=== PATIENT | female | born 1970 | race Native Hawaiian/Other Pacific Islander ===

== ENCOUNTER 2017-11-18 00:35 | Emergency (ER) | payer OTHER ==
[~2017-11-18] VITALS: Ht 157.5 cm; Wt 87.1 kg
--- OUTSIDE RECORDS SUMMARY | 2017-11-18 00:44 | XMS REPORT ---
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 Info Not Available Non Drug Allergy Problems Problem Type Condition Code Onset Dates Condition Status Assessment Acute sinusitis J01.90 Active Assessment Urticaria L50.9 Active Medications Medication Code System Code Instructions Start Date End Date Status Dosage Triamcinolone Acetonide [facility] [address]-76 0.1 % Externally Twice a day to rash Oct 06, 2015 1 application to affected area PredniSONE [facility] [address]-94 20 MG Orally Once a day Oct 06, 2015 Oct 11, 2015 1 tablet with food or milk Amoxicillin [facility] [address]-78 500 MG Orally Twice a day Oct 06, 2015 Oct 16, 2015 2 capsules one time Procedures Procedure Coding System Code Date Office Visit, New Pt., Level 3 CPT-4 90273 Oct 06, 2015 Vital Signs Date/Time: Oct 06, 2015 Temperature 98.5 F Weight 217.15 lbs Height 62 in BMI 39.71 Index Blood Pressure Diastolic 64 mmHg Blood Pressure Systolic 106 mmHg Cardiac Monitoring Heart Rate 76 bpm Results No Known Results Summary Purpose eClinicalWorks Submission
[2017-11-18] MEDS ORDERED: RX-AMOXICILLIN 500 MG CAP #3 PPK PO STA (01:23)
[2017-11-18] MEDS ORDERED: HYDROcodone/APAP 7.5 MG/325 MG (LORTAB, LORCET PLUS) TABLET PO STA (01:23)
[2017-11-18] MEDS ORDERED: AMOXICILLIN 500 MG (POLYMOX) CAP PO STA (01:23)
[2017-11-18] MEDS ORDERED: RX-HYDROCODONE/APAP 5/325 MG #4 TAB PK PO PRN (01:30)
--- NOTE | 2017-11-18 01:32 | ED EENT ---
History of Present Illness General Chief Complaint: Dental Problems/Pain Stated Complaint: SWOLLEN JAW TOOTH PAIN Nursing Triage Note: PT TO ED 10 W/ FAMILY FOR C/O LT SIDE DENTAL PAIN ONSET YESTERDAY Source: patient Exam Limitations: no limitations History of Present Illness Time seen by provider: 01:17 Initial Comments Here with report of dental pain to the left posterior upper tooth. There is apparently a tooth that is cracked there. Does report some swelling of the face. Denies nausea or vomiting. No fever or chills. Pain is quite severe and not better with 2 Advil. Timing/Duration: abrupt, this morning Severity: moderate Location: dental Prearrival Treatment: over the counter meds Associated Symptoms: facial pain/swelling, No fever, No sinus infection, No sore throat, tooth pain, No voice change Allergies and Home Medications Allergies Coded Allergies: No Known Drug Allergies (Unverified , 11/18/17) Review of Systems Constitutional: see HPI, No chills, No fever Ears: No Symptoms Reported Nose: no symptoms reported Mouth: see HPI, pain, swelling Throat: no symptoms reported Respiratory: no symptoms reported Gastrointestinal: No abdominal pain, No nausea, No vomiting Skin: no symptoms reported Neurological: No Symptoms Reported Past Eqcjtgd-Ddsrdo-Kxgwzb Hx Patient Social History Alcohol Use: Denies Use Recreational Drug Use: No Smoking Status: Never a Smoker Recent Foreign Travel: No Contact w/Someone Who Travel: No Recent Infectious Disease Expo: No Physical Abuse: No Sexual Abuse: No Mistreated: No Fear: No Surgeries History of Surgeries: No Respiratory History of Respiratory Disorde: No Cardiovascular History of Cardiac Disorders: No Neurological History of Neurological Disord: No Genitourinary History of Genitourinary Disor: No Gastrointestinal History of Gastrointestinal Di: No Musculoskeletal History of Musculoskeletal Dis: No Endocrine History of Endocrine Disorders: No HEENT History of HEENT Disorders: No Cancer History of Cancer: No Psychosocial History of Psychiatric Problem: No Suicide Risk Score: 0 Integumentary History of Skin or Integumenta: No Blood Transfusions History of Blood Disorders: No Reviewed Nursing Assessment Reviewed/Agree w Nursing PMH: Yes Family Medical History Significant Family History: No Pertinent Family Hx Physical Exam Vital Signs Vital Sign - Last 12Hours 11/18/17 00:52 Temp 98.2 Pulse 92 Resp 20 B/P (MAP) 125/89 (101) Pulse Ox 99 General Appearance: WD/WN, no apparent distress Eyes: bilateral eye normal inspection, bilateral eye PERRL, bilateral eye EOMI Nose: normal inspection, No active bleeding Mouth/Throat: pharynx normal, dental tenderness, other (pain and dental carry with moderate decay and tooth is cracked to number 15.) Neck: full range of motion, supple Cardiovascular: regular rate, rhythm, no murmur Respiratory: lungs clear, normal breath sounds Neurologic/Psychiatric: alert, oriented x 3 Skin: normal color, warm/dry Progress/Results/Core Measures Results/Orders My Orders Orders - KRISTIN MERCER MD Hydrocodone/Apap 7.5/325 Tab (Lortab 7. (11/18/17 01:23) Rx-Hydrocodone/Apap 5-325 Mg (Rx-Vicodin (11/18/17 01:30) Amoxicillin Capsule (Polymox Capsule) (11/18/17 01:23) Rx-Amoxicillin Capsule (Rx-Polymox Capsu (11/18/17 01:23) Vital Signs/I&O Vital Sign - Last 12Hours 11/18/17 00:52 Temp 98.2 Pulse 92 Resp 20 B/P (MAP) 125/89 (101) Pulse Ox 99 Blood Pressure Mean: 101 Progress Note : Progress Note Seen and evaluated. Hydrocodone 7.5/325 one tab by mouth. Amoxicillin 500 mg by mouth. Copack of amoxicillin and hydrocodone given. Discharged home with return precautions. Patient verbalize understanding instructions and agreement with plan. Departure Impression Impression: Primary Impression: Dental caries Disposition: HOME, SELF-CARE Condition: Improved Departure-Patient Inst. Decision time for Depature: 01:31 Referrals: NO,LOCAL PHYSICIAN (PCP) Primary Care Physician Patient Instructions: Dental Pain (DC), Fractured Tooth (DC) Add. Discharge Instructions: All discharge instructions reviewed with patient and/or family. Voiced understanding. Take medications as directed. Follow-up with your dentist as soon as possible. You may take ibuprofen (Advil, Motrin) 800 mg every 8 hours as needed for pain. You may use dental wax over the tooth of concern. This may decrease the pain and prevent her from getting on the tooth. Rinse her mouth with salt water 3 times daily. Return for worsening, fever, vomiting, weakness, breathing problems or other concerns as needed. Scripts Hydrocodone Bit/Acetaminophen (Hydrocodone/Acetaminophen 5/325mg Tablet) 1 Tab Tab 1-2 EACH PO Q6H Y for PAIN-MODERATE, #12 TAB 0 Refills Prov: KRISTIN MERCER MD 11/18/17 Amoxicillin (Amoxicillin) 500 Mg Capsule 500 MG PO TID, #30 CAP 0 Refills Prov: KRISTIN MERCER MD 11/18/17 Images Mouth/Nose 1 - KRISTIN MERCER MD Nov 18, 2017 01:32
[2017-11-18] MEDS ORDERED: AMOX500C2 PO (01:33)
[2017-11-18] MEDS ORDERED: ACHD5005 PO (01:33)
[2017-11-18 01:38] VITALS: BP 0/0
== END 2017-11-18 01:38 | disposition home or self-care (01) ==
LOC: EDUNIT# 00:35 → ER 00:40
DX: K02.9 Dental caries, unspecified (principal)
CPT/HCPCS: 99283

== ENCOUNTER 2023-01-27 05:31 | Emergency (ER) | payer SELFPAY ==
[~2023-01-27] VITALS: Ht 157.5 cm; Wt 73.6 kg
[~2023-01-27 05:31] MED LIST: ACHD5005 PO; AMOX500C2 PO
[2023-01-27 05:37] VITALS: BP 143/93
[2023-01-27] MEDS ORDERED: KETO10TA PO (05:50)
--- NOTE | 2023-01-27 05:51 | ED EENT ---
History of Present Illness General Chief Complaint: Dental Problems/Pain Stated Complaint: DENTAL PAIN Source: patient, family () Exam Limitations: no limitations History of Present Illness Date Seen by Provider: Jan 27, 2023 Time Seen by Provider: 05:32 Initial Comments 52-year-old female presents for left upper dental pain. Symptoms started yesterday and have progressively been causing her not to be able to sleep. She has a cracked tooth in this area but states she has never had pain in the area before. No fevers or chills. No difficulty swallowing. All other systems reviewed and negative except documented per HPI. Voice recognition software was used to help create this chart Allergies and Home Medications Allergies Coded Allergies: No Known Drug Allergies (Unverified , 11/18/17) Patient Home Medication List Home Medication List Reviewed: Yes Amoxicillin (Amoxicillin) 500 Mg Capsule, 500 MG PO TID Prescribed by: KRISTIN MERCER on 11/18/17 0133 Hydrocodone Bit/Acetaminophen (Lortab 5 Mg Tablet) 1 Tab Tab, 1-2 EACH PO Q6H PRN for PAIN-MODERATE Prescribed by: KRISTIN MERCER on 11/18/17 0133 Review of Systems Review of Systems Constitutional: no symptoms reported Past Gvjbnkn-Gtuwhi-Zrurji Hx Patient Social History Tobacco Use?: No Use of E-Cig and/or Vaping dev: No Substance use?: No Alcohol Use?: No Past Medical History Surgeries: No Respiratory: No Cardiac: No Neurological: No Genitourinary: No Gastrointestinal: No Musculoskeletal: No Endocrine: No HEENT: No Cancer: No Psychosocial: No Integumentary: No Blood Disorders: No Family Medical History Reviewed Nursing Family Hx No Pertinent Family Hx Physical Exam Height, Weight, BMI Height: 5'2.00" Weight: 192lbs. oz. 87.386723rz; BMI Method:Stated General Appearance: WD/WN, no apparent distress Eyes: bilateral eye normal inspection, bilateral eye PERRL, bilateral eye EOMI Ears: bilateral ear auricle normal, bilateral ear canal normal, bilateral ear TM normal Nose: normal inspection Mouth/Throat: other (There is a severely decayed tooth in the left upper premolar area. No fluctuance. No obvious drainable abscess.) Neck: non-tender, supple, normal inspection Cardiovascular: regular rate, rhythm, no murmur Respiratory: chest non-tender, normal breath sounds Neurologic/Psychiatric: alert, oriented x 3 Skin: normal color, warm/dry Departure Communication (Admissions) Patient is hemodynamically stable. She has no submandibular pain or swelling, no evidence of Murali's angina. No difficulty swallowing. She does have pain and sensitivity to cold her left upper dentition. No fluctuance or drainable abscess at this time. Focus on pain control. Patient is comfortable agreeable with this. She will call dental office on Saturday to schedule follow-up. Impression Primary Impression: Dental caries Disposition: HOME, SELF-CARE Condition: Stable Departure-Patient Inst. Referrals: NO,LOCAL PHYSICIAN (PCP) Primary Care Physician [facility] [place] Patient Instructions: Dental Pain (DC) Add. Discharge Instructions: Please use pain medication as prescribed as needed. Call to schedule dental follow up on Saturday. All discharge instructions reviewed with patient and/or family. Voiced understanding. Scripts Ketorolac Tromethamine (Ketorolac Tromethamine) 10 Mg Tablet 10 MG PO TID for Pain for 3 Days, #9 TAB Prov: CURTIS TORRES DO 01/27/23 CURTIS TORRES DO Jan 27, 2023 05:51
[2023-01-27] MEDS ORDERED: KETOROLAC 15 MG/ML VIAL IM ONE (06:00)
== END 2023-01-27 05:55 | disposition home or self-care (01) ==
LOC: EDUNIT# 05:31 → ER 05:32
DX: K02.9 Dental caries, unspecified (principal); K03.81 Cracked tooth; Z28.310 Unvaccinated for COVID-19
CPT/HCPCS: 99284